=== PATIENT | female | born 1950 | race African-American/Black ===

== ENCOUNTER 2016-11-27 07:03 | Day surgery (SDC) | payer BC, MEDICAID, OTHER ==
[~2016-11-27] VITALS: Ht 170.2 cm; Wt 127.0 kg
[~2016-11-27 07:03] MED LIST: ASPI-1160; ATENOLOL; ATOR40TA70 PO; CARV6.2548 PO; CLOP75TA15 PO; FOLI-43 PO; FURO-152; GABA-531 PO; HUMULIN; HYDR-4134 PO; ISOS30TA6 PO; LISINOPRIL; LOSARTAN; POTA8TAB4; SIMVASTATIN
[2016-11-27] MEDS ORDERED: IODIXANOL 320MG/ML 100 ML BOTTLE IV ONE (07:49)
[2016-11-27] MEDS ORDERED: LIDOCAINE HCL 1% 20ML VIAL (Pyxis) INJ ONE (07:50)
[2016-11-27] MEDS ORDERED: humalog SQ (08:12)
[2016-11-27] MEDS ORDERED: DOCU-138 PO (08:12)
[2016-11-27] MEDS ORDERED: COR12 PO (08:12)
[2016-11-27] MEDS ORDERED: LOSA50TA20 PO (08:12)
[2016-11-27] MEDS ORDERED: AMLO5TAB4 PO (08:12)
[2016-11-27] MEDS ORDERED: ASPIRIN/SOD BICARB/CITRIC ACID 324MG TAB EFF ONE (08:18)
[2016-11-27] MEDS ORDERED: MIDAZOLAM HCL 2 MG/2 ML VIAL ONE (08:19)
[2016-11-27] MEDS ORDERED: FENTANYL CITRATE/PF 50MCG/ML 2ML VIAL ONE (08:19)
[2016-11-27] MEDS ORDERED: HEPARIN SODIUM 1,000 UNIT/1ML VIAL IV ONE (08:23)
[2016-11-27 08:26] LABS: HEMATOCRIT 33.9 % (36.0-48.0); HEMOGLOBIN 10.7 g/dL (12.0-16.0); MEAN CORPUSCULAR HEMOGLOBIN 26.4 pg (28.0-32.0); MEAN CORPUSCULAR VOLUME 83.7 fL (81.0-99.0); PLATELET 258 x1000/uL (130-400); RED BLOOD CELL COUNT 4.05 mill/uL (4.2-5.4); RED CELL DISTRIBUTION WIDTH 16.5 % (11.6-14.6)
[2016-11-27] MEDS ORDERED: MORPHINE SULFATE 2 MG/ML CPJ (NOT FOR IM USE) IV PRN (09:15)
[2016-11-27] MEDS ORDERED: ATROPINE SULFATE 1MG/10ML SYR IV PRN (09:15)
[2016-11-27] MEDS ORDERED: ONDANSETRON HCL 4MG/2ML VIAL IV PRN (09:15)
[2016-11-27] MEDS ORDERED: ACETAMINOPHEN 325MG TABLET PO PRN (09:15)
[2016-11-27] MEDS ORDERED: NICARDIPINE 100MCG/ML 10ML VIAL (CATH LAB) IV ONE (14:37)
[2016-11-27] MEDS ORDERED: NITROGLYCERIN 50MCG/ML 10ML VIAL (CATH LAB) IV ONE (14:37)
== END 2016-11-27 15:00 | disposition home or self-care (01) ==
LOC: CCL 07:03
PROVIDERS: ATTEND Specialist
DX: I25.10 Atherosclerotic heart disease of native coronary artery without angina pectoris (principal); E78.00 Pure hypercholesterolemia, unspecified; E11.22 Type 2 diabetes mellitus with diabetic chronic kidney disease; I13.11 Hypertensive heart and chronic kidney disease without heart failure, with stage 5 chronic kidney disease, or end stage renal disease; N18.6 End stage renal disease; E66.9 Obesity, unspecified
CPT/HCPCS: 36415; 80048; 85027; 85347; 93458; C1769; C1887; C1893; J1644; J2250; J3010; J3490; Q9967

== ENCOUNTER → 2020-11-11 | Day surgery (SDC) | payer BC, OTHER ==
[~2020-11-11] MED LIST changes: +AMLO5TAB4 PO; +COR12 PO; +DOCU-138 PO; -GABA-531 PO; +GABA-532 PO; -ISOS30TA6 PO; +ISOS30TA91 PO; +LIDOCAINE HCL/EPINEPHRINE 1%-EPI 1:100,000 20 ML VIAL ONE; +LOSA50TA41 PO; +SODIUM BICARBONATE 4% (2.4MEQ) 5ML VIAL IV ONE; +humalog SQ
== END | disposition home or self-care (01) ==
LOC: RAD 08:04
PROVIDERS: ATTEND Internal Medicine Hematology & Oncology
DX: N63.20 Unspecified lump in the left breast, unspecified quadrant (principal); N63.10 Unspecified lump in the right breast, unspecified quadrant; R92.8 Other abnormal and inconclusive findings on diagnostic imaging of breast; Z20.822 Contact with and (suspected) exposure to COVID-19; Z79.899 Other long term (current) drug therapy; Z98.890 Other specified postprocedural states; Z79.82 Long term (current) use of aspirin; Z87.891 Personal history of nicotine dependence; Z82.49 Family history of ischemic heart disease and other diseases of the circulatory system; Z83.3 Family history of diabetes mellitus
CPT/HCPCS: 19083; 76641; 87426; 88305; J3490

== ENCOUNTER → 2021-05-24 | Outpatient (CLI) | payer BC, OTHER ==
[~2021-05-24] MED LIST changes: -LIDOCAINE HCL/EPINEPHRINE 1%-EPI 1:100,000 20 ML VIAL ONE; -SODIUM BICARBONATE 4% (2.4MEQ) 5ML VIAL IV ONE
== END | disposition home or self-care (01) ==
LOC: MAMMO 12:57
PROVIDERS: ATTEND Internal Medicine Hematology & Oncology
DX: C50.412 Malignant neoplasm of upper-outer quadrant of left female breast (principal); N63.13 Unspecified lump in the right breast, lower outer quadrant; Z90.12 Acquired absence of left breast and nipple
CPT/HCPCS: 76642; 77066

== ENCOUNTER 2024-05-20 16:52 | Inpatient (IN) | payer BC, OTHER, MEDICARE ==
[~2024-05-20] VITALS: Ht 170.2 cm; Wt 107.6 kg
[~2024-05-20 16:52] MED LIST changes: +AMLO10TA4 MT; -AMLO5TAB4 PO; -ATENOLOL; -CARV6.2548 PO; -CLOP75TA15 PO; +CLOP75TA33 PO; -COR12 PO; +COR6 MT; +DULO30CA52 PO; -FURO-152; +GABA-1180 PO; -GABA-532 PO; -HYDR-4134 PO; +HYDR25TA78 PO; +IPRA3AMP9 NEB; -ISOS30TA91 PO; -LISINOPRIL; +LOSA100T33 PO; -LOSA50TA41 PO; -LOSARTAN; -POTA8TAB4; -SIMVASTATIN; -humalog SQ
[2024-05-20 17:43] LABS: BASOPHILS % 0.6 % (0.0-2.0); EOSINOPHILS % 0.2 % (0.0-5.0); HEMATOCRIT. 22.8 % (36.0-48.0); HEMOGLOBIN. 7.5 g/dL (12.0-16.0); LYMPHOCYTES % 7.4 % (20.0-50.0); MEAN CORPUSCULAR HEMOGLOBIN 28.7 pg (28.0-32.0); MEAN CORPUSCULAR VOLUME 86.7 fL (81.0-99.0); MEAN PLATELET VOLUME 8.2 fl (7.4-10.4); MONOCYTES % 8.3 % (2.0-8.0); NEUTROPHILS % 83.5 % (40.0-76.0); PLATELET 212 x1000/uL (130-400); RED BLOOD CELL COUNT 2.63 mill/uL (4.2-5.4); RED CELL DISTRIBUTION WIDTH 18.6 % (11.6-14.6)
[2024-05-20 17:49] LABS: CHLORIDE 97 mEq/L (98-107); POTASSIUM 5.5 mEq/L (3.5-5.1); SODIUM 136 mEq/L (136-145)
[2024-05-20 17:50] LABS: CALCIUM 8.5 mg/dL (8.7-10.4); CARBON DIOXIDE 17 mEq/L (21-32)
[2024-05-20 17:55] LABS: GLUCOSE 161 mg/dL (70-105); UREA NITROGEN BLOOD 96 mg/dL (9-23)
[2024-05-20 17:57] LABS: ALANINE AMINOTRANSFERASE 405 IU/L (10-49); ALBUMIN 3.8 g/dL (3.2-4.8); ASPARTATE AMINOTRANSFERASE 751 IU/L (<34); BILIRUBIN DIRECT 0.9 mg/dL (<=3.0); BILIRUBIN TOTAL 1.5 mg/dL (0.1-1.0); PROTEIN TOTAL 7.8 g/dL (6.0-8.3)
[2024-05-20 18:09] LABS: CREATININE 11.9 mg/dL (0.6-1.0); TROPONIN I HIGH SENSITIVITY 98 ng/L (3.0-34)
[2024-05-20] MEDS: ONDANSETRON HCL 4MG/2ML INJ IV ONE (18:28)
[2024-05-20 21:22] LABS: TROPONIN I HIGH SENSITIVITY 102 ng/L (3.0-34)
[2024-05-20 21:39] VITALS: BP 177/80; PULSE 82; RESP 23; TEMP 36.61404; O2SAT 97
[2024-05-20 22:08] VITALS: BP 177/80; PULSE 74; RESP 23; TEMP 36.6404
[2024-05-20] MEDS ORDERED: SODIUM POLYSTYRENE SULFONATE 15 G/60 ML BOT PO ONE (23:15)
[2024-05-20] MEDS ORDERED: DEXTROSE 50% WATER 50ML SYRINGE IV PRN (23:45)
[2024-05-21] VITALS (19 sets, daily range): BP systolic 130–166; BP diastolic 55–98; PULSE 63–78; RESP 11–20; TEMP 36.44736–36.89184; O2SAT 94–99
[2024-05-21] MEDS: AMLODIPINE 5MG TABLET PO SCH (00:17)
[2024-05-21] MEDS: SODIUM ZIRCONIUM CYCLOSILICATE 10GM/PACKET PO NR (00:17)
[2024-05-21] MEDS: ACETAMINOPHEN 325MG TABLET PO PRN (02:33)
[2024-05-21] MEDS: IPRATROPIUM/ALBUTEROL 0.5-3(2.5)MG/3ML NEB HHN SCH (03:28)
[2024-05-21] MEDS: HYDRALAZINE HCL 25MG TABLET PO SCH (05:17)
[2024-05-21] MEDS: GABAPENTIN 100MG CAPSULE PO SCH (05:17)
[2024-05-21] MEDS: BLOOD SUGAR DIAGNOSTIC STRIP TEST SCH (06:26)
[2024-05-21] MEDS: PANTOPRAZOLE 40MG DR TABLET PO SCH (06:26)
[2024-05-21] MEDS: HYDRALAZINE 20MG/ML VIAL IV PRN (06:26)
[2024-05-21] MEDS: INSULIN LISPRO 100 UNITS/ML SUBCUT SCH (06:39)
[2024-05-21] MEDS: CARVEDILOL 6.25 MG TABLET PO SCH (09:12)
[2024-05-21] MEDS: ASPIRIN 81MG TABLET PO SCH (09:12)
[2024-05-21 13:14] LABS: MEAN CORPUSCULAR HEMOGLOBIN 28.4 pg (28.0-32.0); MEAN CORPUSCULAR VOLUME 86.1 fL (81.0-99.0); MEAN PLATELET VOLUME 8.6 fl (7.4-10.4); PLATELET 168 x1000/uL (130-400); RED BLOOD CELL COUNT 2.46 mill/uL (4.2-5.4); RED CELL DISTRIBUTION WIDTH 18.7 % (11.6-14.6); WHITE BLOOD COUNT 9.9 x1000/uL (4.5-11.0)
[2024-05-21 13:53] LABS: CARBON DIOXIDE 19 mEq/L (21-32); CHLORIDE 99 mEq/L (98-107); SODIUM 137 mEq/L (136-145)
[2024-05-21 13:54] LABS: CALCIUM 8.4 mg/dL (8.7-10.4)
[2024-05-21 13:58] LABS: IRON 194 ug/dL (50-170)
[2024-05-21 13:59] LABS: GLUCOSE 199 mg/dL (70-105)
[2024-05-21 14:01] LABS: TOTAL IRON BINDING CAPACITY 202 ug/dl (250-425)
[2024-05-21 14:02] LABS: DIFFERENTIAL COMMENT 1
[2024-05-21 14:03] LABS: HEMATOCRIT. 21.2 % (36.0-48.0)
[2024-05-21 14:56] LABS: UREA NITROGEN BLOOD 108 mg/dL (9-23)
[2024-05-21 14:57] LABS: CREATININE 13.1 mg/dL (0.6-1.0)
[2024-05-21 15:03] LABS: VITAMIN B12 SERUM > 2000 pg/mL (211-911)
[2024-05-21] MEDS: ATORVASTATIN CALCIUM 40MG TABLET PO SCH (23:11)
[2024-05-21] MEDS: PETROLATUM,WHITE OINTMENT 100GM JAR TOP SCH (23:12)
[2024-05-21] MEDS: EPOETIN ALFA-EPBX 4,000 UNIT/ML VIAL SUBCUT SCH (23:14)
[2024-05-22] VITALS (15 sets, daily range): BP systolic 116–152; BP diastolic 50–71; PULSE 59–74; RESP 15–21; TEMP 36.33624–36.6696; O2SAT 85–100
[2024-05-22 07:30] LABS: ANISOCYTOSIS 2+; NUCLEATED RED BLOOD CELLS 1 /100 WBC; PLATELET ESTIMATE NORMAL
[2024-05-22 10:26] LABS: HEMATOCRIT. 22.5 % (36.0-48.0); HEMOGLOBIN. 7.2 g/dL (12.0-16.0); MEAN CORPUSCULAR HEMOGLOBIN 28.2 pg (28.0-32.0); MEAN CORPUSCULAR HGB CONC 32.2 g/dL (31.0-37.0); MEAN CORPUSCULAR VOLUME 87.6 fL (81.0-99.0); MEAN PLATELET VOLUME 8.2 fl (7.4-10.4); PLATELET 161 x1000/uL (130-400); RED BLOOD CELL COUNT 2.57 mill/uL (4.2-5.4); RED CELL DISTRIBUTION WIDTH 19.2 % (11.6-14.6)
[2024-05-22 10:29] LABS: CALCIUM 8.5 mg/dL (8.7-10.4)
[2024-05-22 10:36] LABS: PHOSPHORUS 7.7 mg/dL (2.5-4.9)
[2024-05-22 10:49] LABS: DIFFERENTIAL COMMENT 1
[2024-05-22 10:54] LABS: CREATININE 9.5 mg/dL (0.6-1.0)
[2024-05-22] MEDS: CALCIUM ACETATE 667MG CAPSULE PO SCH (12:14)
[2024-05-22 13:13] LABS: NUCLEATED RED BLOOD CELLS 4 /100 WBC
[2024-05-22 13:14] LABS: ANISOCYTOSIS 2+; PLATELET ESTIMATE NORMAL
[2024-05-22] MEDS ORDERED: CALC667C PO (16:15)
[2024-05-22] MEDS ORDERED: CALC667T6 MT (16:16)
[2024-05-23] VITALS (18 sets, daily range): BP systolic 111–142; BP diastolic 51–65; PULSE 61–67; RESP 11–18; TEMP 36.50292–36.72516; O2SAT 87–100
[2024-05-23] MEDS: AMLODIPINE 10MG TABLET PO SCH (08:41)
[2024-05-23 10:48] LABS: CALCIUM 8.1 mg/dL (8.7-10.4); POTASSIUM 4.2 mEq/L (3.5-5.1)
[2024-05-23 10:55] LABS: HEMATOCRIT. 22.3 % (36.0-48.0); HEMOGLOBIN. 7.3 g/dL (12.0-16.0); MEAN CORPUSCULAR HEMOGLOBIN 28.5 pg (28.0-32.0); MEAN CORPUSCULAR HGB CONC 32.8 g/dL (31.0-37.0); MEAN CORPUSCULAR VOLUME 86.9 fL (81.0-99.0); MEAN PLATELET VOLUME 8.6 fl (7.4-10.4); PLATELET 147 x1000/uL (130-400); RED BLOOD CELL COUNT 2.57 mill/uL (4.2-5.4); RED CELL DISTRIBUTION WIDTH 18.7 % (11.6-14.6); WHITE BLOOD COUNT 7.9 x1000/uL (4.5-11.0)
[2024-05-23 11:15] LABS: CREATININE 10.4 mg/dL (0.6-1.0); DIFFERENTIAL COMMENT 1
[2024-05-23 16:30] LABS: NUCLEATED RED BLOOD CELLS 1 /100 WBC; PLATELET ESTIMATE NORMAL
== END 2024-05-23 21:18 | disposition home health service (06) | DRG 291 ==
LOC: ER 16:52 → 3WST 18:09 → EDBEDREQTM 18:10 → EDBEDREQ 18:10
PROVIDERS: ADMIT Internal Medicine; ATTEND Internal Medicine
PROC: 5A1D70Z Performance of Urinary Filtration, Intermittent, Less than 6 Hours Per Day (ICD-10-PCS; principal; 2024-05-21)
PROC: 5A1D70Z Performance of Urinary Filtration, Intermittent, Less than 6 Hours Per Day (ICD-10-PCS; 2024-05-23)
DX: I13.2 Hypertensive heart and chronic kidney disease with heart failure and with stage 5 chronic kidney disease, or end stage renal disease (principal); N18.6 End stage renal disease; N25.81 Secondary hyperparathyroidism of renal origin; R53.1 Weakness; E78.5 Hyperlipidemia, unspecified; E11.22 Type 2 diabetes mellitus with diabetic chronic kidney disease; I25.10 Atherosclerotic heart disease of native coronary artery without angina pectoris; F32.A Depression, unspecified; G89.29 Other chronic pain; S61.213A Laceration without foreign body of left middle finger without damage to nail, initial encounter; K21.9 Gastro-esophageal reflux disease without esophagitis; I50.9 Heart failure, unspecified; Z85.3 Personal history of malignant neoplasm of breast; Z99.2 Dependence on renal dialysis; Z79.02 Long term (current) use of antithrombotics/antiplatelets; Z79.82 Long term (current) use of aspirin; Z79.899 Other long term (current) drug therapy; Z86.73 Personal history of transient ischemic attack (TIA), and cerebral infarction without residual deficits; Z91.158 Patient's noncompliance with renal dialysis for other reason; Z91.199 Patient's noncompliance with other medical treatment and regimen due to unspecified reason; Z95.5 Presence of coronary angioplasty implant and graft; X58.XXXA Exposure to other specified factors, initial encounter; Y93.89 Activity, other specified; Y92.89 Other specified places as the place of occurrence of the external cause; Y99.8 Other external cause status
CPT/HCPCS: 36415; 71045; 74176; 80048; 80076; 82607; 82962; 83540; 83550; 84100; 84484; 85025; 90935; 93005; 94640; 99291; A6261; J0360; J0885; J1815; J2405